=== PATIENT | female | born 1945 | race Hispanic/Latino ===

== ENCOUNTER → 2023-09-17 07:29 | Outpatient (REF) | payer MEDICARE, OTHER, SELFPAY ==
[2023-09-17 08:57] LABS: INR 3.09; PT 32.3 Sec (11.4-14.6)
== END ==
LOC: RAD 07:29
PROVIDERS: ATTENDING PHYSICIAN Internal Medicine Rheumatology; FAMILY PHYSICIAN Family Medicine; REFERRING PHYSICIAN Internal Medicine
DX: Z13.820 Encounter for screening for osteoporosis (principal); Z95.2 Presence of prosthetic heart valve; Z78.0 Asymptomatic menopausal state; M81.0 Age-related osteoporosis without current pathological fracture
CPT/HCPCS: 36415; 77080; 77081; 85610

== ENCOUNTER → 2023-10-12 10:08 | Outpatient (REF) | payer MEDICARE, OTHER, SELFPAY ==
[2023-10-12 11:53] LABS: INR 3.49; PT 35.1 Sec (11.4-14.6)
== END ==
LOC: REG 10:08
PROVIDERS: ATTENDING PHYSICIAN Internal Medicine
DX: Z95.2 Presence of prosthetic heart valve (principal)
CPT/HCPCS: 36415; 85610

== ENCOUNTER → 2023-11-05 15:42 | Outpatient (REF) | payer MEDICARE, OTHER, SELFPAY ==
[2023-11-05 16:47] LABS: INR 3.49; PT 35.6 Sec (11.4-14.6)
== END ==
LOC: REG 15:42
PROVIDERS: ATTENDING PHYSICIAN Internal Medicine; FAMILY PHYSICIAN Family Medicine
DX: Z95.2 Presence of prosthetic heart valve (principal)
CPT/HCPCS: 36415; 85610

== ENCOUNTER → 2023-12-09 08:54 | Outpatient (REF) | payer MEDICARE, OTHER, SELFPAY ==
[2023-12-09 10:00] LABS: INR 3.53; PT 35.9 Sec (11.4-14.6)
== END ==
LOC: REG 08:54
PROVIDERS: ATTENDING PHYSICIAN Internal Medicine; FAMILY PHYSICIAN Family Medicine
DX: Z95.2 Presence of prosthetic heart valve (principal)
CPT/HCPCS: 36415; 85610

== ENCOUNTER → 2024-01-13 09:25 | Outpatient (REF) | payer MEDICARE, OTHER, SELFPAY ==
[2024-01-13 10:50] LABS: INR 3.57; PT 36.2 Sec (11.4-14.6)
== END ==
LOC: REG 09:25
PROVIDERS: ATTENDING PHYSICIAN Internal Medicine; FAMILY PHYSICIAN Family Medicine
DX: Z95.2 Presence of prosthetic heart valve (principal)
CPT/HCPCS: 36415; 85610

== ENCOUNTER → 2024-02-10 08:07 | Outpatient (REF) | payer MEDICARE, OTHER, SELFPAY ==
[2024-02-10 08:46] LABS: INR 3.26; PT 33.7 Sec (11.4-14.6)
== END ==
LOC: REG 08:07
PROVIDERS: ATTENDING PHYSICIAN Internal Medicine; FAMILY PHYSICIAN Family Medicine
DX: Z95.2 Presence of prosthetic heart valve (principal)
CPT/HCPCS: 36415; 85610

== ENCOUNTER → 2024-03-14 11:51 | Outpatient (REF) | payer MEDICARE, OTHER, SELFPAY ==
[2024-03-14 12:37] LABS: INR 3.42; PT 34.5 Sec (11.4-14.6)
== END ==
LOC: REG 11:51
PROVIDERS: ATTENDING PHYSICIAN Internal Medicine; FAMILY PHYSICIAN Family Medicine
DX: Z95.2 Presence of prosthetic heart valve (principal)
CPT/HCPCS: 36415; 85610

== ENCOUNTER → 2024-04-25 08:46 | Outpatient (REF) | payer MEDICARE, OTHER, SELFPAY ==
[2024-04-25 09:37] LABS: INR 4.03; PT 39.3 Sec (11.4-14.6)
== END ==
LOC: REG 08:46
PROVIDERS: ATTENDING PHYSICIAN Internal Medicine; FAMILY PHYSICIAN Family Medicine
DX: Z95.2 Presence of prosthetic heart valve (principal)
CPT/HCPCS: 36415; 85610

== ENCOUNTER → 2024-04-29 09:24 | Outpatient (REF) | payer MEDICARE, OTHER, SELFPAY ==
[2024-04-29 10:38] LABS: INR 3.63; PT 36.1 Sec (11.4-14.6)
== END ==
LOC: REG 09:24
PROVIDERS: ATTENDING PHYSICIAN Internal Medicine; FAMILY PHYSICIAN Family Medicine
DX: Z95.2 Presence of prosthetic heart valve (principal)
CPT/HCPCS: 36415; 85610

== ENCOUNTER → 2024-05-06 09:06 | Outpatient (REF) | payer MEDICARE, OTHER, SELFPAY ==
[2024-05-06 10:45] LABS: INR 3.88; PT 38.2 Sec (11.4-14.6)
== END ==
LOC: RAD 09:06
PROVIDERS: ATTENDING PHYSICIAN Internal Medicine; FAMILY PHYSICIAN Family Medicine; REFERRING PHYSICIAN Physician Assistant Surgical
DX: Z95.2 Presence of prosthetic heart valve (principal); M54.50 Low back pain, unspecified; M25.552 Pain in left hip
CPT/HCPCS: 36415; 73502; 85610

== ENCOUNTER → 2024-05-13 09:35 | Outpatient (REF) | payer MEDICARE, OTHER, SELFPAY ==
[2024-05-13 11:27] LABS: PT 39.9 Sec (11.4-14.6)
== END ==
LOC: REG 09:35
PROVIDERS: ATTENDING PHYSICIAN Internal Medicine; FAMILY PHYSICIAN Family Medicine
DX: Z95.2 Presence of prosthetic heart valve (principal)
CPT/HCPCS: 36415; 85610

== ENCOUNTER → 2024-05-20 10:02 | Outpatient (REF) | payer MEDICARE, OTHER, SELFPAY ==
[2024-05-20 10:40] LABS: INR 3.79; PT 37.4 Sec (11.4-14.6)
== END ==
LOC: REG 10:02
PROVIDERS: ATTENDING PHYSICIAN Internal Medicine; FAMILY PHYSICIAN Family Medicine
DX: Z95.2 Presence of prosthetic heart valve (principal)
CPT/HCPCS: 36415; 85610

== ENCOUNTER → 2024-05-27 10:17 | Outpatient (REF) | payer MEDICARE, OTHER, SELFPAY ==
[2024-05-27 11:50] LABS: INR 2.84; PT 29.8 Sec (11.4-14.6)
== END ==
LOC: REG 10:17
PROVIDERS: ATTENDING PHYSICIAN Internal Medicine; FAMILY PHYSICIAN Family Medicine
DX: Z95.2 Presence of prosthetic heart valve (principal)
CPT/HCPCS: 36415; 85610

== ENCOUNTER → 2024-05-28 13:08 | Outpatient (REF) | payer MEDICARE, OTHER, SELFPAY | LOC: WDC 13:08 | PROVIDERS: ATTENDING PHYSICIAN Family Medicine | DX: Z12.31 Encounter for screening mammogram for malignant neoplasm of breast (principal) | CPT/HCPCS: 77063; 77067 ==

== ENCOUNTER → 2024-06-03 08:57 | Outpatient (REF) | payer MEDICARE, OTHER, SELFPAY ==
[2024-06-03 10:52] LABS: INR 2.75
== END ==
LOC: REG 08:57
PROVIDERS: ATTENDING PHYSICIAN Internal Medicine; FAMILY PHYSICIAN Family Medicine
DX: Z95.2 Presence of prosthetic heart valve (principal)
CPT/HCPCS: 36415; 85610

== ENCOUNTER → 2024-06-08 08:57 | Outpatient (REF) | payer MEDICARE, OTHER, SELFPAY | LOC: WDC 08:57 | PROVIDERS: ATTENDING PHYSICIAN Family Medicine | DX: R92.8 Other abnormal and inconclusive findings on diagnostic imaging of breast (principal) | CPT/HCPCS: 76642 ==

== ENCOUNTER → 2024-06-10 08:58 | Outpatient (REF) | payer MEDICARE, OTHER, SELFPAY ==
[2024-06-10 09:41] LABS: PT 31.9 Sec (11.4-14.6)
== END ==
LOC: REG 08:58
PROVIDERS: ATTENDING PHYSICIAN Internal Medicine; FAMILY PHYSICIAN Family Medicine
DX: Z95.2 Presence of prosthetic heart valve (principal)
CPT/HCPCS: 36415; 85610

== ENCOUNTER → 2024-06-17 09:00 | Outpatient (REF) | payer MEDICARE, OTHER, SELFPAY ==
[2024-06-17 10:31] LABS: INR 2.57; PT 27.5 Sec (11.4-14.6)
== END ==
LOC: REG 09:00
PROVIDERS: ATTENDING PHYSICIAN Internal Medicine; FAMILY PHYSICIAN Family Medicine
DX: Z95.2 Presence of prosthetic heart valve (principal)
CPT/HCPCS: 36415; 85610

== ENCOUNTER → 2024-07-20 07:48 | Outpatient (REF) | payer MEDICARE, OTHER, SELFPAY ==
[2024-07-20 10:10] LABS: INR 1.78; PT 21.2 Sec (11.4-14.6)
== END ==
LOC: REG 07:48
PROVIDERS: ATTENDING PHYSICIAN Internal Medicine
DX: Z95.2 Presence of prosthetic heart valve (principal)
CPT/HCPCS: 36415; 85610

== ENCOUNTER → 2024-07-22 07:33 | Outpatient (REF) | payer MEDICARE, OTHER, SELFPAY ==
[2024-07-22 08:45] LABS: INR 3.43; PT 34.3 Sec (11.4-14.6)
== END ==
LOC: REG 07:33
PROVIDERS: ATTENDING PHYSICIAN Internal Medicine; FAMILY PHYSICIAN Family Medicine
DX: Z95.2 Presence of prosthetic heart valve (principal)
CPT/HCPCS: 36415; 85610

== ENCOUNTER → 2024-07-26 09:10 | Outpatient (REF) | payer MEDICARE, OTHER, SELFPAY ==
[2024-07-26 10:13] LABS: INR 3.35; PT 33.8 Sec (11.4-14.6)
== END ==
LOC: REG 09:10
PROVIDERS: ATTENDING PHYSICIAN Internal Medicine; FAMILY PHYSICIAN Family Medicine
DX: Z95.2 Presence of prosthetic heart valve (principal)
CPT/HCPCS: 36415; 85610

== ENCOUNTER → 2024-08-03 09:03 | Outpatient (REF) | payer MEDICARE, OTHER, SELFPAY ==
[2024-08-03 09:47] LABS: INR 3.03; PT 31.8 Sec (11.4-14.6)
== END ==
LOC: REG 09:03
PROVIDERS: ATTENDING PHYSICIAN Internal Medicine
DX: Z95.2 Presence of prosthetic heart valve (principal)
CPT/HCPCS: 36415; 85610

== ENCOUNTER → 2024-08-16 09:11 | Outpatient (REF) | payer MEDICARE, OTHER, SELFPAY ==
[2024-08-16 10:22] LABS: INR 2.11; PT 24.2 Sec (11.4-14.6)
== END ==
LOC: REG 09:11
PROVIDERS: ATTENDING PHYSICIAN Internal Medicine; FAMILY PHYSICIAN Family Medicine
DX: Z95.2 Presence of prosthetic heart valve (principal)
CPT/HCPCS: 36415; 85610

== ENCOUNTER → 2024-08-26 09:09 | Outpatient (REF) | payer MEDICARE, OTHER, SELFPAY ==
[2024-08-26 10:29] LABS: INR 2.73; PT 28.9 Sec (11.4-14.6)
== END ==
LOC: REG 09:09
PROVIDERS: ATTENDING PHYSICIAN Internal Medicine
DX: Z95.2 Presence of prosthetic heart valve (principal)
CPT/HCPCS: 36415; 85610

== ENCOUNTER → 2024-09-06 09:40 | Outpatient (REF) | payer MEDICARE, OTHER, SELFPAY ==
[2024-09-06 10:19] LABS: INR 2.37
== END ==
LOC: REG 09:40
PROVIDERS: ATTENDING PHYSICIAN Internal Medicine; FAMILY PHYSICIAN Family Medicine
DX: Z95.2 Presence of prosthetic heart valve (principal)
CPT/HCPCS: 36415; 85610

== ENCOUNTER → 2024-09-14 07:41 | Outpatient (REF) | payer MEDICARE, OTHER, SELFPAY ==
[2024-09-14 09:44] LABS: INR 2.92; PT 30.8 Sec (11.4-14.6)
== END ==
LOC: REG 07:41
PROVIDERS: ATTENDING PHYSICIAN Internal Medicine
DX: Z95.2 Presence of prosthetic heart valve (principal)
CPT/HCPCS: 36415; 85610

== ENCOUNTER → 2024-09-23 07:34 | Outpatient (REF) | payer MEDICARE, OTHER, SELFPAY ==
[2024-09-23 09:12] LABS: INR 3.62; PT 35.8 Sec (11.4-14.6)
[2024-09-23 09:15] LABS: Erythrocyte Sed Rate 15 mm/hour (0-20)
== END ==
LOC: REG 07:34
PROVIDERS: Internal Medicine Rheumatology; ATTENDING PHYSICIAN Internal Medicine; FAMILY PHYSICIAN Family Medicine
DX: Z95.2 Presence of prosthetic heart valve (principal); E55.9 Vitamin D deficiency, unspecified; M15.0 Primary generalized (osteo)arthritis; M16.0 Bilateral primary osteoarthritis of hip; M19.072 Primary osteoarthritis, left ankle and foot; M81.0 Age-related osteoporosis without current pathological fracture; R79.82 Elevated C-reactive protein (CRP); Z79.899 Other long term (current) drug therapy
CPT/HCPCS: 36415; 85610; 85652; 86140

== ENCOUNTER → 2024-09-29 09:30 | Outpatient (REF) | payer MEDICARE, OTHER, SELFPAY ==
[2024-09-29 10:46] LABS: INR 2.85; PT 30.3 Sec (11.4-14.6)
== END ==
LOC: REG 09:30
PROVIDERS: ATTENDING PHYSICIAN Internal Medicine
DX: Z95.2 Presence of prosthetic heart valve (principal)
CPT/HCPCS: 36415; 85610

== ENCOUNTER 2024-10-06 06:15 | Day surgery (SDC) | payer MEDICARE, OTHER, SELFPAY | END 2024-10-06 10:55 | disposition home or self-care (01) | LOC: GI 06:15 | PROVIDERS: ATTENDING PHYSICIAN Specialist | DX: Z12.11 Encounter for screening for malignant neoplasm of colon (principal); K63.5 Polyp of colon; Z79.01 Long term (current) use of anticoagulants | CPT/HCPCS: 45385; 88305 ==

== ENCOUNTER → 2024-10-10 07:33 | Outpatient (REF) | payer MEDICARE, OTHER, SELFPAY ==
[2024-10-10 08:19] LABS: INR 1.43; PT 17.7 Sec (11.4-14.6)
== END ==
LOC: REG 07:33
PROVIDERS: ATTENDING PHYSICIAN Internal Medicine; FAMILY PHYSICIAN Family Medicine
DX: Z95.2 Presence of prosthetic heart valve (principal)
CPT/HCPCS: 36415; 85610

== ENCOUNTER → 2024-10-12 07:34 | Outpatient (REF) | payer MEDICARE, OTHER, SELFPAY ==
[2024-10-12 08:52] LABS: PT 24.9 Sec (11.4-14.6)
== END ==
LOC: REG 07:34
PROVIDERS: ATTENDING PHYSICIAN Internal Medicine; FAMILY PHYSICIAN Family Medicine
DX: Z95.2 Presence of prosthetic heart valve (principal)
CPT/HCPCS: 36415; 85610

== ENCOUNTER → 2024-10-17 07:22 | Outpatient (REF) | payer MEDICARE, OTHER, SELFPAY ==
[2024-10-17 08:02] LABS: INR 3.02; PT 31.2 Sec (11.4-14.6)
== END ==
LOC: REG 07:22
PROVIDERS: ATTENDING PHYSICIAN Internal Medicine; FAMILY PHYSICIAN Family Medicine
DX: Z95.2 Presence of prosthetic heart valve (principal)
CPT/HCPCS: 36415; 85610

== ENCOUNTER → 2024-10-24 08:02 | Outpatient (REF) | payer MEDICARE, OTHER, SELFPAY ==
[2024-10-24 09:14] LABS: INR 4.55; PT 42.5 Sec (11.4-14.6)
== END ==
LOC: REG 08:02
PROVIDERS: ATTENDING PHYSICIAN Internal Medicine; FAMILY PHYSICIAN Family Medicine
DX: Z95.2 Presence of prosthetic heart valve (principal)
CPT/HCPCS: 36415; 85610

== ENCOUNTER → 2024-10-31 07:29 | Outpatient (REF) | payer MEDICARE, OTHER, SELFPAY ==
[2024-10-31 08:11] LABS: PT 37.2 Sec (11.4-14.6)
== END ==
LOC: REG 07:29
PROVIDERS: ATTENDING PHYSICIAN Internal Medicine; FAMILY PHYSICIAN Family Medicine
DX: Z95.2 Presence of prosthetic heart valve (principal)
CPT/HCPCS: 36415; 85610

== ENCOUNTER → 2024-11-07 07:16 | Outpatient (REF) | payer MEDICARE, OTHER, SELFPAY ==
[2024-11-07 08:19] LABS: INR 3.63; PT 35.9 Sec (11.4-14.6)
== END ==
LOC: REG 07:16
PROVIDERS: ATTENDING PHYSICIAN Internal Medicine
DX: Z95.2 Presence of prosthetic heart valve (principal)
CPT/HCPCS: 36415; 85610

== ENCOUNTER → 2024-11-15 07:25 | Outpatient (REF) | payer MEDICARE, OTHER, SELFPAY ==
[2024-11-15 08:12] LABS: INR 3.33; PT 33.5 Sec (11.4-14.6)
== END ==
LOC: REG 07:25
PROVIDERS: ATTENDING PHYSICIAN Internal Medicine; FAMILY PHYSICIAN Family Medicine
DX: Z95.2 Presence of prosthetic heart valve (principal)
CPT/HCPCS: 36415; 85610

== ENCOUNTER → 2024-11-22 09:07 | Outpatient (REF) | payer MEDICARE, OTHER, SELFPAY ==
[2024-11-22 10:07] LABS: INR 3.21; PT 32.7 Sec (11.4-14.6)
== END ==
LOC: REG 09:07
PROVIDERS: ATTENDING PHYSICIAN Internal Medicine
DX: Z95.2 Presence of prosthetic heart valve (principal)
CPT/HCPCS: 36415; 85610

== ENCOUNTER → 2024-12-01 09:08 | Outpatient (REF) | payer MEDICARE, OTHER, SELFPAY ==
[2024-12-01 10:19] LABS: INR 3.34; PT 34.2 Sec (11.4-14.6)
== END ==
LOC: REG 09:08
PROVIDERS: ATTENDING PHYSICIAN Internal Medicine; FAMILY PHYSICIAN Family Medicine
DX: Z95.2 Presence of prosthetic heart valve (principal)
CPT/HCPCS: 36415; 85610

== ENCOUNTER → 2024-12-29 07:20 | Outpatient (REF) | payer MEDICARE, OTHER, SELFPAY ==
[2024-12-29 08:05] LABS: INR 3.66; PT 36.1 Sec (11.4-14.6)
== END ==
LOC: REG 07:20
PROVIDERS: ATTENDING PHYSICIAN Internal Medicine; FAMILY PHYSICIAN Family Medicine
DX: Z95.2 Presence of prosthetic heart valve (principal)
CPT/HCPCS: 36415; 85610

== ENCOUNTER → 2025-01-30 10:58 | Outpatient (REF) | payer MEDICARE, OTHER, SELFPAY ==
[2025-01-30 13:17] LABS: INR 3.08; PT 31.7 Sec (11.4-14.6)
== END ==
LOC: REG 10:58
PROVIDERS: ATTENDING PHYSICIAN Internal Medicine; FAMILY PHYSICIAN Family Medicine
DX: Z95.2 Presence of prosthetic heart valve (principal); I45.10 Unspecified right bundle-branch block
CPT/HCPCS: 36415; 85610; 93306

== ENCOUNTER → 2025-03-13 08:24 | Outpatient (REF) | payer MEDICARE, OTHER, SELFPAY ==
[2025-03-13 09:32] LABS: INR 3.11; PT 32.4 Sec (11.4-14.6)
== END ==
LOC: REG 08:24
PROVIDERS: ATTENDING PHYSICIAN Internal Medicine
DX: Z95.2 Presence of prosthetic heart valve (principal)
CPT/HCPCS: 36415; 85610

== ENCOUNTER → 2025-04-05 08:29 | Outpatient (REF) | payer MEDICARE, OTHER, SELFPAY ==
[2025-04-05 09:20] LABS: INR 3.18; PT 32.9 Sec (11.4-14.6)
== END ==
LOC: REG 08:29
PROVIDERS: ATTENDING PHYSICIAN Internal Medicine; FAMILY PHYSICIAN Family Medicine
DX: Z95.2 Presence of prosthetic heart valve (principal)
CPT/HCPCS: 36415; 85610

== ENCOUNTER → 2025-05-09 08:37 | Outpatient (REF) | payer MEDICARE, OTHER, SELFPAY ==
[2025-05-09 09:38] LABS: INR 3.24; PT 32.9 Sec (11.4-14.6)
== END ==
LOC: REG 08:37
PROVIDERS: ATTENDING PHYSICIAN Internal Medicine; FAMILY PHYSICIAN Family Medicine
DX: Z95.2 Presence of prosthetic heart valve (principal)
CPT/HCPCS: 36415; 85610

== ENCOUNTER → 2025-06-12 09:16 | Outpatient (REF) | payer MEDICARE, OTHER, SELFPAY ==
[2025-06-12 10:32] LABS: INR 3.50; PT 34.9 Sec (11.4-14.6)
== END ==
LOC: REG 09:16
PROVIDERS: ATTENDING PHYSICIAN Internal Medicine; FAMILY PHYSICIAN Family Medicine
DX: Z95.2 Presence of prosthetic heart valve (principal)
CPT/HCPCS: 36415; 85610

== ENCOUNTER → 2025-06-15 07:46 | Outpatient (REF) | payer MEDICARE, OTHER, SELFPAY | LOC: WDC 07:46 | PROVIDERS: ATTENDING PHYSICIAN Family Medicine | DX: R92.8 Other abnormal and inconclusive findings on diagnostic imaging of breast (principal) | CPT/HCPCS: 76642 ==

== ENCOUNTER → 2025-08-02 11:00 | Outpatient (REF) | payer MEDICARE, OTHER, SELFPAY | LOC: WDC 11:00 | PROVIDERS: ATTENDING PHYSICIAN Family Medicine | DX: Z12.31 Encounter for screening mammogram for malignant neoplasm of breast (principal) | CPT/HCPCS: 77063; 77067 ==

== ENCOUNTER → 2025-08-14 10:11 | Outpatient (REF) | payer MEDICARE, OTHER, SELFPAY ==
[2025-08-14 12:14] LABS: INR 3.08; PT 32.1 Sec (11.4-14.6)
== END ==
LOC: WDC 10:11
PROVIDERS: ATTENDING PHYSICIAN Family Medicine; FAMILY PHYSICIAN Family Medicine; REFERRING PHYSICIAN Internal Medicine
DX: R92.8 Other abnormal and inconclusive findings on diagnostic imaging of breast (principal); Z95.2 Presence of prosthetic heart valve
CPT/HCPCS: 36415; 76642; 85610